=== PATIENT | male | born 2000 | race American Indian/Alaskan Native ===

== ENCOUNTER 2020-07-30 13:21 | Emergency (ER) | payer MEDICAID ==
[2020-07-30] MEDS ORDERED: Bacitracin Oint 1 GM U/D Packet TOP ONE (13:53)
--- NOTE | 2020-07-30 13:55 | EDM.PDOC ---
ED HPI GENERAL MEDICAL PROBLEM - General Chief Complaint: Laceration Stated Complaint: LT THUMB CUT Time Seen by Provider: 07/30/20 13:54 Source of Information: Reports: Patient History Limitations: Reports: No Limitations - History of Present Illness INITIAL COMMENTS - FREE TEXT/NARRATIVE: pt cut the interiano aspect of the left thumb on knife. Onset: Today, Sudden Duration: Hour(s): Location: Reports: Upper Extremity, Left Associated Symptoms: Reports: No Other Symptoms - Related Data Allergies Allergy/AdvReac Type Severity Reaction Status Date / Time amoxicillin [From Augmentin] Allergy Other Verified 07/30/20 13:40 clavulanic acid Allergy Other Verified 07/30/20 13:40 [From Augmentin] Sulfa (Sulfonamide Allergy Other Verified 07/30/20 13:40 Antibiotics) Home Meds: Home Meds NK [No Known Home Meds] 07/30/20 [History] Past Medical History - Past Health History Medical/Surgical History: Denies Medical/Surgical History Social & Family History - Tobacco Use Tobacco Use Status *Q: Current Every Day Tobacco User Years of Tobacco use: 3 Packs/Tins Daily: 0.5 - Caffeine Use Caffeine Use: Reports: Coffee, Soda, Tea - Recreational Drug Use Recreational Drug Use: No ED ROS GENERAL - Review of Systems Review Of Systems: See Below Constitutional: Reports: No Symptoms HEENT: Reports: No Symptoms Respiratory: Reports: No Symptoms Cardiovascular: Reports: No Symptoms Endocrine: Reports: No Symptoms GI/Abdominal: Reports: No Symptoms Musculoskeletal: Reports: Other (laceration to the left thunb, ) ED EXAM, SKIN/RASH Exam: See Below Text/Narrative:: pt cut his left thumb. He has a 1/2 inch laceration on the left thumb. Exam Limited By: No Limitations General Appearance: Alert, Anxious Extremities: Other (pt has a 1/2 inch laceration on the interiano aspect of the left thumb. ) Course - Vital Signs Last Recorded V/S: Last Vital Signs Temp 35.9 C L 07/30/20 13:43 Pulse 52 L 07/30/20 13:43 Resp 16 07/30/20 13:43 BP 109/56 L 07/30/20 13:43 Pulse Ox 97 07/30/20 13:43 - Orders/Labs/Meds Meds: Medications Discontinued Medications Generic Name Dose Route Start Last Admin Trade Name Freq PRN Reason Stop Dose Admin Bacitracin 1 dose 07/30/20 13:53 07/30/20 14:01 Bacitracin Oint 1 Gm TOP 07/30/20 13:54 1 dose ONETIME ONE Administration Lidocaine HCl 5 ml 07/30/20 13:53 07/30/20 14:01 Xylocaine-Mpf 1% INJECT 07/30/20 13:54 5 ml ONETIME ONE Administration - Re-Assessments/Exams Free Text/Narrative Re-Assessment/Exam: 07/30/20 14:19 pt is current with tetanus. He was cleansed well and infiltrated with lidocaine. The wound was brought together with 5-0 prolene. It was dressed with bacatracin Departure - Departure Time of Disposition: 14:17 Disposition: Home, Self-Care 01 Condition: Fair Clinical Impression: Laceration - Discharge Information Instructions: Laceration Care, Adult, [id number] Referrals: Consuelo Ireland I, DIETITIAN HELPER [Primary Care Provider] - Forms: ED Department Discharge Care Plan Goals: keep dry, no further ointments, sr in 7-8 days. Sepsis Event Note (ED) - Evaluation Sepsis Screening Result: No Definite Risk
== END 2020-07-30 14:26 | disposition home or self-care (01) ==
LOC: JP.ED 13:21
DX: S61.012A Laceration without foreign body of left thumb without damage to nail, initial encounter (principal); Z88.0 Allergy status to penicillin; Z88.1 Allergy status to other antibiotic agents; Z88.2 Allergy status to sulfonamides; Z72.0 Tobacco use; W26.0XXA Contact with knife, initial encounter
CPT/HCPCS: 12001; 99282; 99282-25; J2001

== ENCOUNTER 2023-06-03 11:40 | Emergency (ER) | payer MEDICAID ==
[2023-06-03 13:17] LABS: BASOPHILS ABSOLUTE AUTO 0.03 K/uL (0.00-0.10); BASOPHILS PERCENT AUTO 0.4 % (0.1-1.3); EOSINOPHILS ABSOLUTE AUTO 0.22 K/uL (0.00-0.40); EOSINOPHILS PERCENT AUTO 2.9 % (0.0-5.4); HEMATOCRIT 44.4 % (38.4-49.7); HEMOGLOBIN 14.8 g/dL (12.9-16.9); IMMATURE GRAN PERCENT AUTO 0.3 % (0.0-0.7); LYMPHOCYTES ABSOLUTE AUTO 2.29 K/uL (0.8-3.3); LYMPHOCYTES PERCENT AUTO 30.6 % (11.4-47.7); MEAN CORPUSCULAR HEMOGLOBIN 28.9 pg (31.6-35.5); MEAN CORPUSCULAR HGB CONC 33.3 g/dL (31.6-35.5); MEAN CORPUSCULAR VOLUME 86.7 fL (81.4-99.0); MONOCYTES ABSOLUTE AUTO 0.41 K/uL (0.20-0.90); MONOCYTES PERCENT AUTO 5.5 % (3.3-12.6); NEUTROPHILS ABSOLUTE AUTO 4.51 K/uL (1.0-7.6); NEUTROPHILS PERCENT AUTO 60.3 % (40.0-78.1); PLATELET COUNT,PLT 249 K/uL (130-375); RED BLOOD CELL COUNT 5.12 M/uL (4.14-5.76); WHITE BLOOD CELL COUNT,WBC 7.5 K/uL (3.2-11.0)
[2023-06-03 13:21] LABS: IMMATURE GRAN ABSOLUTE AUTO 0.02 K/uL (0.00-0.23)
[2023-06-03] MEDS: Pantoprazole 40 MG Tab.CR PO SCH (13:35)
[2023-06-03 13:38] LABS: A/G RATIO 0.9 (1.2-2.2); ALANINE AMINOTRANSFERASE,ALT 39 U/L (12-78); ALBUMIN 3.7 g/dL (3.4-5.0); ALKALINE PHOSPHATASE 83 U/L (46-116); ASPARTATE AMNIOTRANSFERASE,AST 28 U/L (15-37); BILIRUBIN TOTAL 0.5 mg/dL (0.2-1.0); BLOOD UREA NITROGEN,BUN 10 mg/dL (7-18); CALCIUM 8.7 mg/dL (8.5-10.1); CARBON DIOXIDE,CO2 28 mmol/L (21-32); CHLORIDE,CL 102 mmol/L (100-108); EST CRCL DRUG DOSING (CG) 121.32 mL/min; ESTIMATED GFR 108 mL/min (>60); GLUCOSE RANDOM 83 mg/dL (74-106); POTASSIUM,K 3.8 mmol/L (3.6-5.2); PROTEIN TOTAL,TP 7.7 g/dL (6.4-8.2); SODIUM,NA 139 mmol/L (140-148)
[2023-06-03 13:39] LABS: ANION GAP 12.8 mmol/L (5.0-14.0)
== END 2023-06-03 13:38 | disposition home or self-care (01) ==
LOC: JP.ED 11:40
DX: R10.13 Epigastric pain (principal); F17.210 Nicotine dependence, cigarettes, uncomplicated; K21.9 Gastro-esophageal reflux disease without esophagitis; Z88.0 Allergy status to penicillin; Z88.1 Allergy status to other antibiotic agents; Z88.2 Allergy status to sulfonamides; Z79.899 Other long term (current) drug therapy
CPT/HCPCS: 36415; 80053; 83690; 85025; 99284; A9270

== ENCOUNTER 2024-11-08 14:11 | Emergency (ER) | payer MEDICAID | END 2024-11-08 15:32 | disposition home or self-care (01) | LOC: JP.ED 14:11 | DX: S01.91XA Laceration without foreign body of unspecified part of head, initial encounter (principal); Z88.2 Allergy status to sulfonamides; Z88.0 Allergy status to penicillin; Z88.8 Allergy status to other drugs, medicaments and biological substances; X50.9XXA Other and unspecified overexertion or strenuous movements or postures, initial encounter | CPT/HCPCS: 12001; 99283 ==